=== PATIENT | male | born 1980 | race Caucasian/White ===

== ENCOUNTER 2016-09-23 18:12 | Emergency (ER) | payer BC ==
[2016-09-23 18:56] VITALS: BP 134/77
[2016-09-23] MEDS ORDERED: HYDROmorphone 1 MG/ML Syringe IM ONE (19:00)
[2016-09-23] MEDS ORDERED: Ketorolac 60 MG/2 ML SDV IM ONE (19:00)
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
--- NOTE | 2016-09-24 09:05 | CR ---
Left hand: Four views of the left hand were obtained. Comparison: No previous hand study. Joint spaces are maintained. Mild deformity compatible with old healed fracture seen within the shaft of the fifth metacarpal. No acute fracture, dislocation or other bony abnormality is seen. Impression: 1. Old and slightly angulated fracture within the fifth metacarpal. 2. No additional abnormality is identified on left hand study. Diagnostic code #2
== END 2016-09-23 20:45 | disposition home or self-care (01) ==
LOC: JD.ED 18:12
DX: S63.659A Sprain of metacarpophalangeal joint of unspecified finger, initial encounter (principal); Z88.0 Allergy status to penicillin; Z98.890 Other specified postprocedural states; V40.5XXA Car driver injured in collision with pedestrian or animal in traffic accident, initial encounter
CPT/HCPCS: 29125; 73130; 96372; 99284; J1170; J1885; 99283-25